=== PATIENT | female | born 2000 | race Caucasian/White ===

== ENCOUNTER 2021-07-13 18:55 | Emergency (ER) | payer OTHER, MEDICAID, SELFPAY ==
--- NOTE | ~2021-07-13 | XR_ITS ---
EXAMINATION: XR FOOT, RIGHT CLINICAL INFORMATION: Malignant infection. Evaluate for stool. COMPARISON: None TECHNIQUE: AP, lateral, and oblique views of the right foot. FINDINGS: The bones and soft tissues are normal. No fracture. Alignment is anatomic. Joint spaces are maintained. XR/XR foot RT 2V IMPRESSION: No soft tissue or bony abnormality seen especially along the lateral fifth digit. No suspicion for osteomyelitis.
[2021-07-13 19:16] VITALS: BP 115/69; PULSE 85; RESP 16; TEMP 36.6; O2SAT 98; BMI 35.2
--- NOTE | 2021-07-13 20:13 | ED_ITS ---
HPI - Extremity Injury (Lower) General Chief Complaint: Extremity Injury, Lower Stated Complaint: foot swelling Time Seen by Provider: 07/13/21 19:59 Source: patient Mode of arrival: ambulatory Limitations: no limitations History of Present Illness HPI Narrative: 21-year-old female previously healthy here with complaints of right foot swelling and pain. The patient tells me that she noticed a wound in between her 4th and 5th toe several weeks ago. Yesterday when she woke up she noticed the foot was swollen and painful and red. She denies any fevers or chills. No history of diabetes. No injury or trauma. Related Data Previous Rx's Medication Instructions Recorded clotrimazole 1 % topical cream 1 appl TOPICAL BID 28 Days #45 g 07/13/21 doxycycline monohydrate 100 mg 100 mg PO BID #20 tab 07/13/21 tablet ibuprofen 800 mg tablet 800 mg PO Q8H PRN #20 tab 07/13/21 Allergies Allergy/AdvReac Type Severity Reaction Status Date / Time No Known Allergies Allergy Verified 07/13/21 19:19 Review of Systems Review of Systems: Yes all other systems are reviewed and are negative Constitutional: Constitutional: Reports no additional constitutional complaints, Denies body ache(s), Denies chills, Denies fever(s), Denies headache(s) and Denies weakness Eyes: Eyes: Reports no additional eye complaints and Denies change in vision ENT: Reports system reviewed and no additional complaints, except as documented, Denies dizziness, Denies headache(s), Denies nasal congestion, Denies nasal discharge and Denies neck pain Cardiovascular: Cardiovascular: Reports no additional cardiovascular complaints, Denies chest pain, Denies leg edema and Denies dyspnea Respiratory: Respiratory: Reports no additional respiratory complaints, Denies cough and Denies dyspnea Gastrointestinal: Gastrointestinal: Reports no additional gastrointestinal complaints, Denies abdominal pain, Denies diarrhea, Denies nausea and Denies vomiting Genitourinary: Genitourinary: Reports no additional female genitourinary complaints and Denies urinary incontinence Musculoskeletal: Musculoskeletal: Reports no additional musculoskeletal complaints, Denies back pain, Denies arthralgias, Denies joint swelling, Denies neck pain, Denies numbness and Denies tingling Integumentary/Breasts: Skin/Breast: Reports system reviewed and no additional complaints, except as docu, Reports swelling, Reports erythema and Denies rash Neurologic: Reports system reviewed and no additional complaints, except as documented, Denies Abnormal speech present, Denies dizziness, Denies headache(s), Denies numbness, Denies tingling and Denies weakness PMFSH Past Medical History Attestation statement: The following information was validated with the patient. Source: old records reviewed and nursing notes reviewed Social History Social History Advance Directives: No Advance Directives Information Provided: No Physical Exam Vital Signs: Vital Signs: Last Vital Signs Temp 98 F 07/13/21 19:16 Pulse 85 07/13/21 19:16 Resp 16 07/13/21 19:16 BP 115/69 07/13/21 19:16 Pulse Ox 98 07/13/21 19:16 Body Mass Index 35.2 Const: General: cooperative, healthy appearing, comfortable and no acute d istress Orientation/consciousness: patient oriented x3 Limitations: no limitations HENMT: Head: Yes normal to inspection Ears: hearing grossly normal bilaterally General nose exam: Normal external nose present Face and sinu s: Yes normal facial exam Mouth: Normal oral and palatal mucosa present Throat: Yes posterior oropharynx normal Eyes: General: appearance normal, both eyes and all related structures Pupils: Equal, round and reactive pupils present Neck: Neck: Yes normal visual inspection Chest: Chest palpation & inspection: normal inspection of the chest Resp: Effort & Inspection: normal respiratory effort Auscultation: clear to auscultation bilaterally Cardio: Rate: regular rate Rhythm: regular rhythm Peripheral pulses: Peripheral pulses 2+ throughout GI: Inspection: Yes normal to inspection Palpation (GI): Soft to palpation and nontender Auscultation: normal bowel sounds Back/Spine/Pelvis: Thoracic/Lumbar Spine: thoracic and lumbar spine normal to inspection Skin: General skin exam: no rashes or lesions noted Neuro: General: patient oriented x3, no focal motor deficits and normal sensation to monofilament Cranial nerves: Yes Equal, round and reactive pupils present Cognition (Neuro): normal cognition Speech: No Abnormal speech present Gait exam (Neuro): Normal gait present Motor exam (neuro): 5/5 motor strength present throughout Extrem: Other: In between the 3rd and 4th and in between the 4th and 5th digits there is some fissuring and excoriation of the skin consistent with tin ea. There is redness and swelling extending over the dorsal aspect of the right foot. Palpable pulses. The swelling and redness is not circumferential. Sensation is intact General: Yes normal to inspection Course Course Course Narrative: Exam is consistent with tinea pedis with a superimposed cellulitis. X-ray show no evidence of osteomyelitis. No systemic signs or symptoms of infection. The area was marked with a skin marker. Will send patient home with course of antibiotics as well as a topical antifungal medication. Postop shoe and crutches for ambulation due to pain with walking. Reviewed worrisome signs and symptoms of when to return to the emergency d epartment. Comfortable discharge home. MDM - Extremity Injury (Lower) Medical Records Attestation: I reviewed the patient's medical records. Lab Data Attestation: I reviewed the patient's lab results. Imaging Data foot xray: Attestation: I personally reviewed and interpreted this imaging study as follows: Radiologist's impression: EXAMINATION: XR FOOT, RIGHT CLINICAL INFORMATION: Malignant infection. Evaluate for stool.? COMPARISON: None? TECHNIQUE: AP, lateral, and oblique views of the right foot. FINDINGS: The bones and soft tissues are normal. No fracture. Alignment is anatomic. Joint spaces are maintained.? XR/XR foot RT 2V IMPRESSION: No soft tissue or bony abnormality seen especially along the lateral fifth digit. No suspicion for osteomyelitis. Procedures Procedure Narrative Procedure Narrative: Postoperative shoe and crutches Discharge Plan Discharge Clinical Impression: Cellulitis, Tinea pedis Patient Disposition: Home, Self-Care Instructions: Athlete's Foot (ED), Cellulitis (ED) Additional Instructions: The area was marked with a skin marker. Return for redness and swelling around the entire foot (360), fever greater than 100.4, sensation alteration. The shoe and crutches are to assist with ambulation Rest and elevate the foot, ice as needed Prescriptions: New doxycycline monohydrate 100 mg tablet 100 mg PO BID Qty: 20 RF: 0 ibuprofen 800 mg tablet 800 mg PO Q8H PRN (Reason: pain) Qty: 20 RF: 0 clotrimazole 1 % cream 1 appl topical BID 28 Days Qty: 45 RF: 0 Referrals: Randa Garcia MD [Primary Care Provider] - 2 days Stand Alone Forms: Work/School Release
== END 2021-07-13 21:29 | disposition home or self-care (01) ==
PROVIDERS: Emergency Provider Internal Medicine; PCP Pediatrics
DX: L03.115 Cellulitis of right lower limb (principal); B35.3 Tinea pedis; Z79.899 Other long term (current) drug therapy
CPT/HCPCS: 73620; 99283

== ENCOUNTER 2022-03-07 15:25 | Emergency (ER) | payer OTHER, MEDICAID, SELFPAY ==
--- NOTE | ~2022-03-07 | CT_ITS ---
EXAMINATION: CT ABDOMEN AND PELVIS WITHOUT CONTRAST CLINICAL INFORMATION: Right lower quadrant pain. Anorexia. Nausea, vomiting, diarrhea. Question appendicitis. COMPARISON: None TECHNIQUE: Multidetector volumetric imaging was performed from the superior aspect of the liver through the pubic symphysis. Sagittal and coronal reformatted images were obtained on the technologist's workstation. This CT examination was performed using dose optimization techniques as appropriate, variously including the following: *Automated exposure control *Adjustment of mA and/or kV according to patient size (this includes techniques or standardized protocols for targeted exams where dose is matched to indication/reason for exam; i.e. extremities or head) *Use of iterative reconstruction technique DLP: 722 mGy-cm FINDINGS: LUNG BASES: The visualized lung bases are unremarkable. LIVER, GALLBLADDER, AND BILIARY TREE: The liver is normal in size, shape, and attenuation. No focal hepatic lesion or biliary ductal dilatation is present. The gallbladder is unremarkable with no evidence of radiopaque gallstones, gallbladder wall thickening, or obvious pericholecystic inflammatory changes. PANCREAS: Unremarkable. SPLEEN: Unremarkable. ADRENAL GLANDS: Unremarkable. KIDNEYS AND URETERS: The kidneys are normal in size, shape, and attenuation. No hydronephrosis, hydroureter, or calculi seen. No perinephric stranding. BLADDER: Unremarkable. GASTROINTESTINAL TRACT: The stomach is unremarkable. Normal caliber small bowel. No obstruction. Normal appendix. No colonic wall thickening or inflammatory change. No free air or free fluid. ABDOMINAL WALL: No significant hernia is appreciated. LYMPH NODES: Normal. VASCULAR: Unremarkable. PELVIC VISCERA: The uterus and adnexa are unremarkable. OSSEOUS STRUCTURES: Unremarkable. CT/CT abdomen pelvis wo con IMPRESSION: No acute finding of the abdomen or pelvis. No inflammatory changes. Normal appendix. Fleischner guidelines were followed.
--- NOTE | ~2022-03-07 | US_ITS ---
EXAMINATION: US PELVIS CLINICAL INFORMATION: Right lower quadrant pain. Nausea and vomiting. COMPARISON: CT 03/07/2022 TECHNIQUE: Ultrasound of the pelvis is performed using both transabdominal and transvaginal transducers along with Doppler. Transvaginal imaging is performed due to inadequate visualization transabdominally. FINDINGS: Uterus: The uterus is anteverted and measures 7.2 x 3.3 x 4.9 cm. Retroverted uterus. The double wall endometrial thickness is 0.6 mm. The uterus is smooth in contour and has normal myometrial echogenicity. No visible fibroid. Adnexa: Both ovaries are visualized. There is normal color flow to the adnexa. There is no ovarian torsion. Trace pelvic free fluid. Complex left ovarian cyst measures 2.6 x 1.9 x 2 cm . Internal echoes present. Right ovary measures 2.8 x 1.6 x 1.9 cm. 4.5 Left ovary measures 4.5 x 2.6 x 3.2 cm. 19.6 US/US pelvic and transvaginal IMPRESSION: No evidence of active ovarian torsion at this time. Complex left ovarian cyst, possibly hemorrhagic cyst.
--- NOTE | ~2022-03-07 | US_ITS ---
EXAMINATION: US PELVIS CLINICAL INFORMATION: Right lower quadrant pain. Nausea and vomiting. COMPARISON: CT 03/07/2022 TECHNIQUE: Ultrasound of the pelvis is performed using both transabdominal and transvaginal transducers along with Doppler. Transvaginal imaging is performed due to inadequate visualization transabdominally. FINDINGS: Uterus: The uterus is anteverted and measures 7.2 x 3.3 x 4.9 cm. Retroverted uterus. The double wall endometrial thickness is 0.6 mm. The uterus is smooth in contour and has normal myometrial echogenicity. No visible fibroid. Adnexa: Both ovaries are visualized. There is normal color flow to the adnexa. There is no ovarian torsion. Trace pelvic free fluid. Complex left ovarian cyst measures 2.6 x 1.9 x 2 cm . Internal echoes present. Right ovary measures 2.8 x 1.6 x 1.9 cm. 4.5 Left ovary measures 4.5 x 2.6 x 3.2 cm. 19.6 US/US pelvic ovarian doppler IMPRESSION: No evidence of active ovarian torsion at this time. Complex left ovarian cyst, possibly hemorrhagic cyst.
[2022-03-07 15:44] VITALS: BP 115/59; PULSE 65; RESP 19; TEMP 36.8; O2SAT 98
[2022-03-07 16:54] LABS: Basophils Percent Auto 0.3 % (0-2); Eosinophils Percent Auto 0.3 % (0-4); Hematocrit 42.1 % (37.0-47.0); Imm Gran Abs Auto 0.04 X10*3/uL (0.00-0.03); Imm Gran Pct Auto 0.3 % (0.0-0.4); Lymphocytes Absolute Auto 2.1 X10*3/uL (1.2-4.9); Lymphocytes Percent Auto 17.8 % (20-40); MANUAL DIFF FLAG NO; Mean Corpuscular HGB Conc 33.3 g/dl (31.0-35.0); Mean Corpuscular Hemoglobin 28.8 pg (27.0-33.0); Mean Corpuscular Volume 86.6 fL (80.0-98.0); Monocytes Absolute Auto 0.4 X10*3/uL (0.1-1.2); Monocytes Percent Auto 3.6 % (2-11); Neutrophils Absolute Auto 8.9 x10*3/uL (2.0-8.3); Neutrophils Percent Auto 77.7 % (45-73); Platelet Count 339 X10*3/uL (160-400); Red Blood Count 4.86 X10*6/uL (4.20-5.50); Red Cell Distribution Width 12.1 % (11.0-16.0); White Blood Count 11.5 X10*3/uL (4.8-10.8)
[2022-03-07 17:00] LABS: Appearance Urine CLEAR; Color Urine YELLOW; Glucose Urine UA NEG (NEG); Leukocyte Esterase Urine NEG (NEG); Nitrite Urine NEG (NEG); Specific Gravity - Urine 1.025 (1.005-1.025); Urine Blood NEG (NEG); Urine Ketones 40 MG/DL (NEG); Urine Protein NEG (NEG-TRACE)
[2022-03-07 17:02] LABS: UPreg QC Valid YES; Urine Pregnancy NEGATIVE (NEGATIVE)
[2022-03-07 17:18] LABS: Alanine Aminotransferase 18 U/L (0-31); Albumin Level 4.1 g/dL (3.5-5.0); Alkaline Phosphatase 100 U/L (39-117); Anion Gap 10 (12-20); Aspartate Amino Transferase 16 U/L (5-31); Bilirubin Total 0.4 mg/dL (0.0-1.0); Blood Urea Nitrogen 10 mg/dL (9-16); Calcium 9.9 mg/dL (8.4-10.2); Carbon Dioxide 27 mmol/L (22-29); Chloride 105 mmol/L (96-108); Creatinine Clr Calc Pharmacy 151.8; Estimated Glomerular Filt Rate > 60; Glucose Random 79 mg/dL (60-115); Lipase 21 U/L (8-78); Potassium 4.4 mmol/L (3.3-5.1); Sodium 138 mmol/L (135-145); Total Protein 7.9 g/dL (6.5-8.0)
--- NOTE | 2022-03-07 21:55 | ED.ABDPAIN ---
HPI - Abdominal Pain General Chief Complaint: Abdominal Pain Stated Complaint: lower rt abd pain Time Seen by Provider: 03/07/22 15:47 Source: patient Mode of arrival: ambulatory History of Present Illness HPI narrative: 21-year-old female without significant past medical history who presents with onset of worsening right lower quadrant pain that started last night, constant in nature, sharp and associated with nausea, vomiting, decreased appetite but she denies any diarrhea and states she has had chills but is unsure of any fevers. Otherwise, she denies any urinary pain/burning/frequency but does endorse that she had a brief episode at the end of January that self resolved. She does report a history of constipation. Related Data Previous Rx's Medication Instructions Recorded clotrimazole 1 % topical cream 1 appl TOPICAL BID 28 Days #45 g 07/13/21 doxycycline monohydrate 100 mg 100 mg PO BID #20 tab 07/13/21 tablet ibuprofen 800 mg tablet 800 mg PO Q8H PRN #20 tab 07/13/21 Allergies Allergy/AdvReac Type Severity Reaction Status Date / Time No Known Allergies Allergy Verified 03/07/22 15:47 Review of Systems Review of Systems Pertinent positives and negatives as stated in HPI 10 point review of systems is otherwise negative. PMFSH Past Medical History Source: nursing notes reviewed Social History Social History Advance Directives: No Advance Directives Information Provided: No Physical Exam ED Vital Signs: Vital Signs - 24 hr 03/07/22 15:44 03/07/22 23:22 03/08/22 00:29 Temperature 98.3 F 98.6 F 98.3 F Pulse Rate 65 62 54 Respiratory Rate 19 18 12 Blood Pressure 115/59 L 99/57 L 97/50 L Pulse Oximetry 98 100 94 BMI result Body Mass Index 30.0 VITAL SIGNS: Reviewed. GENERAL: Elevated BMI, Well developed, well nourished, in no acute distress. HEAD: Normocephalic/atraumatic EYES: PERRLA, EOMI EARS: Ext canals without abnormality OROPHARYNX: no oral lesions noted, posterior pharynx clear LUNGS: Normal breath sounds. No adventitious sounds or accessory muscle use. SpO2<98> CARDIOVASCULAR: Regular rate and rhythm without noted murmurs ABDOMEN: Soft, tenderness maximal at right lower quadrant, McBurney's positive, non-distended with bowel sounds. MUSCULOSKELETAL: No tenderness, deformities, or effusions noted on gross inspection. EXTREMITIES: No cyanosis, clubbing or edema. SKIN: Inspection of the skin reveals no rashes NEUROLOGIC: Alert and oriented x 4. Strength and sensation to light touch were grossly intact x 4. Course Course Course Narrative: 21-year-old female with history and clinical presentation after review of all investigations most suspicious for acute appendicitis and lower clinical suspicion for ovarian torsion and doubt UTI. Urinary is negative and clinical exam inconsistent with cholecystitis. Review of all investigations otherwise negative for acute findings. All results discussed with patient at bedside and she was discharged home in stable condition and able to tolerate oral intake. MDM - Abdominal Pain Lab Data Result diagrams: 03/07/22 16:46 03/07/22 16:46 Labs: Lab Results 03/07/22 03/07/22 03/07/22 Range/Units 15:53 15:53 16:46 WBC 11.5 H (4.8-10.8) X10*3/uL RBC 4.86 (4.20-5.50) X10*6/uL Hgb 14.0 (12.0-16.0) g/dl Hct 42.1 (37.0-47.0) % MCV 86.6 (80.0-98.0) fL MCH 28.8 (27.0-33.0) pg MCHC 33.3 (31.0-35.0) g/dl RDW 12.1 (11.0-16.0) % Plt Count 339 (160-400) X10*3/uL MPV 10.0 (9.4-12.3) fL Immature Gran % (Auto) 0.3 (0.0-0.4) % Neut % (Auto) 77.7 H (45-73) % Lymph % (Auto) 17.8 L (20-40) % [place] % (Auto) 3.6 (2-11) % Eos % (Auto) 0.3 (0-4) % Baso % (Auto) 0.3 (0-2) % Lymph # (Auto) 2.1 (1.2-4.9) X10*3/uL [place] # (Auto) 0.4 (0.1-1.2) X10*3/uL Eos # (Auto) 0.0 (0.0-0.4) X10*3/uL Baso # (Auto) 0.0 (0.0-0.2) X10*3/uL Abs Immat Gran (auto) 0.04 H (0.00-0.03) X10*3/uL Absolute Neuts (auto) 8.9 H (2.0-8.3) x10*3/uL Absolute Nucleated RBC 0.000 (0.0-0.012) X10*3/uL Nucleated RBC % (auto) 0.0 (0.0-0.2) /100WBC Sodium (135-145) mmol/L Potassium (3.3-5.1) mmol/L Chloride (96-108) mmol/L Carbon Dioxide (22-29) mmol/L Anion Gap (12-20) BUN (9-16) mg/dL Creatinine (0.5-1.4) mg/dL Estim Creat Clear Calc Estimated GFR Random Glucose (60-115) mg/dL Calcium (8.4-10.2) mg/dL Total Bilirubin (0.0-1.0) mg/dL AST (5-31) U/L ALT (0-31) U/L Alkaline Phosphatase (39-117) U/L Total Protein (6.5-8.0) g/dL Albumin (3.5-5.0) g/dL Lipase (8-78) U/L Urine Color YELLOW Urine Appearance CLEAR Urine pH 6.0 (5.0-8.0) Ur Specific [place] 1.025 (1.005-1.025) Urine Protein NEG (NEG-TRACE) MG/DL Urine Glucose (UA) NEG (NEG) MG/DL Urine Ketones 40 (NEG) MG/DL Urine Blood NEG (NEG) Urine Nitrite NEG (NEG) Ur Leukocyte Esterase NEG (NEG) Urine Test NEGATIVE (NEGATIVE) COVID-19 ([facility]) (Negative) COVID-19 Clin Com 03/07/22 03/07/22 Range/Units 16:46 22:02 WBC (4.8-10.8) X10*3/uL RBC (4.20-5.50) X10*6/uL Hgb (12.0-16.0) g/dl Hct (37.0-47.0) % MCV (80.0-98.0) fL MCH (27.0-33.0) pg MCHC (31.0-35.0) g/dl RDW (11.0-16.0) % Plt Count (160-400) X10*3/uL MPV (9.4-12.3) fL Immature Gran % (Auto) (0.0-0.4) % Neut % (Auto) (45-73) % Lymph % (Auto) (20-40) % [place] % (Auto) (2-11) % Eos % (Auto) (0-4) % Baso % (Auto) (0-2) % Lymph # (Auto) (1.2-4.9) X10*3/uL [place] # (Auto) (0.1-1.2) X10*3/uL Eos # (Auto) (0.0-0.4) X10*3/uL Baso # (Auto) (0.0-0.2) X10*3/uL Abs Immat Gran (auto) (0.00-0.03) X10*3/uL Absolute Neuts (auto) (2.0-8.3) x10*3/uL Absolute Nucleated RBC (0.0-0.012) X10*3/uL Nucleated RBC % (auto) (0.0-0.2) /100WBC Sodium 138 (135-145) mmol/L Potassium 4.4 (3.3-5.1) mmol/L Chloride 105 (96-108) mmol/L Carbon Dioxide 27 (22-29) mmol/L Anion Gap 10 L (12-20) BUN 10 (9-16) mg/dL Creatinine 0.67 (0.5-1.4) mg/dL Estim Creat Clear Calc 151.8 Estimated GFR > 60 Random Glucose 79 (60-115) mg/dL Calcium 9.9 (8.4-10.2) mg/dL Total Bilirubin 0.4 (0.0-1.0) mg/dL AST 16 (5-31) U/L ALT 18 (0-31) U/L Alkaline Phosphatase 100 (39-117) U/L Total Protein 7.9 (6.5-8.0) g/dL Albumin 4.1 (3.5-5.0) g/dL Lipase 21 (8-78) U/L Urine Color Urine Appearance Urine pH (5.0-8.0) Ur Specific [place] (1.005-1.025) Urine Protein (NEG-TRACE) MG/DL Urine Glucose (UA) (NEG) MG/DL Urine Ketones (NEG) MG/DL Urine Blood (NEG) Urine Nitrite (NEG) Ur Leukocyte Esterase (NEG) Urine Test (NEGATIVE) COVID-19 ([facility]) Negative (Negative) COVID-19 Clin Com See Note Discharge Plan Discharge Clinical Impression: Abdominal pain, Ovarian cyst Patient Disposition: Home, Self-Care Instructions: Abdominal Pain (ED), Ovarian Cyst (ED) Additional Instructions: 1. A reason for your abdominal pain was not identified at this time. 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 2. A left ovarian cyst was identified and can be followed up, as well as discussed with your special forces weapons sergeant/primary care provider. Return to the ER for worsening symptoms. Prescriptions: No Action doxycycline monohydrate 100 mg tablet 100 mg PO BID Qty: 20 0RF ibuprofen 800 mg tablet 800 mg PO Q8H PRN (Reason: pain) Qty: 20 0RF clotrimazole 1 % cream 1 appl topical BID 28 Days Qty: 45 0RF Referrals: Randa Garcia MD [Primary Care Provider] -
[2022-03-07] MEDS: ondansetron HCL 4 MG/2 ML VIAL IVPUSH (22:11)
[2022-03-07] MEDS: Ketorolac Tromethamine 30 MG/ML VIAL 15 MG IVPUSH (22:12)
[2022-03-07] MEDS: 0.9 % Sodium Chloride 1,000 ML 999 ML IV (22:13)
[2022-03-07 22:40] LABS: COVID-19 Test Negative (Negative)
[2022-03-07 23:22] VITALS: BP 99/57; PULSE 62; RESP 18; TEMP 37; O2SAT 100
[2022-03-08 00:29] VITALS: BP 97/50; PULSE 54; RESP 12; TEMP 36.8; O2SAT 94
== END 2022-03-08 01:10 | disposition home or self-care (01) ==
PROVIDERS: Emergency Medicine; Emergency Provider Student in an Organized Health Care Education/Training Program; PCP Pediatrics
DX: R10.31 Right lower quadrant pain (principal); N83.292 Other ovarian cyst, left side; Z20.822 Contact with and (suspected) exposure to COVID-19
CPT/HCPCS: 36415; 74176; 76830; 76856; 80053; 81003; 81025; 83690; 85025; 87635; 93975; 96361; 96374; 96375; 99284; J1885; J2405

== ENCOUNTER 2025-07-30 10:58 | Outpatient (AMB) | payer OTHER, MEDICAID, SELFPAY ==
--- NOTE | 2025-07-30 11:00 | A.OFFPC_ITS ---
Vital Signs 07/30/25 11:05 Height 5 ft Weight 227 lb BMI 44.3 BP 102/68 Blood Pressure Location Lt brachial Position Sitting Respiration 12 Pulse 69 Pulse Source Pulse Oximeter Temp 97.1 F Temp Source Oral Pulse Oximetry (%) 97 Oxygen Delivery Method Room Air Intake Visit Reasons: Requesting CPE, resched Intake Note: New patient to establish care and cpe. Stores Assistant Required: No Allergies No Known Allergies Allergy (Verified 07/30/25 11:01) Medication List - Last Reviewed 07/30/25 by Wallace Hanks MA clotrimazole 1% 1 appl topical BID 4 weeks ibuprofen 800 mg PO Q8H PRN Tobacco use date assessed: 07/30/25 Dental Screening Dental Screen Date: 07/30/25 Did you have a dental visit in the last 12 months?: No Did you have a dental problem in the last 6 months where you did not have access to dental care?: No Was dental information given to patient?: Patient has dentist HPI HPI Comments History of Present Illness Details 25 y/o F with Vit d def, MDD, fhx Bipola r, obesity Social: [facility], [facility] with goal of transfer to [place]; [facility]; raised by Maternal grandparents (Mom Mali Chavez - patient here) delivery helper, 2 children. Surgery: R thigh skin surgery unsure of details Fhx: Dad unknown; Paternal siblings unknown history. Health Maintenance: Tdap 2022 Flu declined 2024 Pap has never had one; referred today Specialists: counselor Optho glasses APARTMENT LEASING SPECIALIST History of Present Illness The patient is a 25-year-old female presenting to [facility] care and for a CPE Previous PCP: [facility], records rec'd and reviewed Obesity: - BMI 44. - Weight gain of 20-30 pounds in the t year. - Attributes weight gain to stress; repo rts poor diet. Anxiety and Depression: - History of auditory and visual halluci nations. - Trials of sertraline and escitalopram were ineffective. MDD was on escitalopram but this caused hallucinations; started on sertraline Knee Pain Bilat - life long. - Occurs often, exacerbated by weather c hanges. - Uses heating pad and warm baths for re lief. Chronic bilat knee pain heating pad, warm bath helps. Vitamin D Deficiency: - Previous diagnosis noted. Past Surgical History - Surgery on right thigh as a child for extra skin removal; no further details available. Family History - Mother with similar knee pain. - Family history of bipolar disorder. 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 - Poor appetite and irregular eating mp edule. - Increased weight gain despite high act ivity levels. - Sleep schedule described as not optima l. Health Maintenance - Discussed setting up an appointment wi th a Women's Health provider for Pap smear and women's wellness. Review of Systems - Musculoskeletal: Reports knee pain. - Psychiatric: Reports anxiety and depre ssion. - General: Reports weight gain. Denies p oor appetite. - No other systems reviewed or discussed . Physical Exam General: Well developed, well nourished, in no acute distress. Appears stated age. Head: Normocephalic, atraumatic. Eyes: Pupils are equal, round and reactive to light and accommodation. Conjunctivae are clear. Scleras nonicteric bilat. Vision grossly normal. Ears: TMs clear AU, EACS WNL Nose: Patent, without discharge. Neck: No carotid bruit bilat. Supple, no adenopathy or thyromegaly. Breast: Edu on SBE Lungs: Clear to auscultation bilaterally. No rales, rhonchi or wheeze noted. Good air flow in all hadley. Heart: Regular rate and rhythm. No murmurs, click, rubs or gallops are noted. Abdomen: Bowel sounds present in all quadrants. The abdomen is soft, nontender, with no masses or organomegaly noted. No hernias are noted. : Deferred. Reviewed recommendations for routine APARTMENT LEASING SPECIALIST Pulses: Peripheral pulses are equal and palpable bilaterally. Extremities: No clubbing, cyanosis. Edema noted in both ankles. Neurologic: Gait and station normal. Cranial Nerves 2-12 intact. Motor strength grossly symmetrical and intact. No sensory loss. Balance normal. Skin: No rashes, ulcers, or lesions noted. Turgor is good. Skin color is good. Hair and nails are without abnormalities. Psych: Normal eye contact, affect and mood appropriate, and normal interactions. Patient is alert and appropriate to context. Results Pending Discussion Notes During our visit, we discussed the patient's knee pain, weight gain, and mental health concerns. I recommended referral to an credit operations specialist to further evaluate knee pain. We also discussed setting up psychiatric evaluation due to the past history of ineffective antidepressant trials and family history of bipolar disorder. The patient is considering a referral for consultation to manage weight gain. Health maintenance was addressed, including setting up a Pap smear. I discussed ordering labs to assess thyroid function and vitamin D levels. The importance of maintaining updated contact information for follow-ups and referrals was emphasized. Patient was given time to ask questions. All questions were answered to their satisfaction. Assessment and Plan 1. Obesity - Referral to [facility] wt mgmt - Emphasis on exercise continuation. 2. Anxiety and Depression - Arrange psychiatric evaluation. - Need est a dx and meds 3. Knee Pain, bilat - Referral to orthopedics. - Continue conservative management. 4. Vitamin D Deficiency - Lab work for vitamin D and thyroid. - Adjust treatment based on results. 5. [facility]; rosa torres screening labs ordered Patient Instructions - Follow up with referrals for orthopedi cs, psychiatry, and dietetics. - Schedule an appointment for a Pap smea r and women's wellness. - Maintain physical activity and monitor nutritional intake. - Update contact information to receive referral calls. - RTO 1 year CPE Sooner as needed. Consent. Patient was informed and verbally consented to the use of an ambient scribe for clinic note documentation during this visit. An additional 30 minutes was spent addressing the problem(s) noted at todays visit. This includes time spent before the visit reviewing the chart, time spent during the visit, and time spent after the visit on documentation reviewing laboratory results, diagnostic imaging, medications, performing a medically necessary evaluation, counseling on diagnoses, care coordination, ordering appropriate tests, ordering appropriate medications, review of tests performed by other providers, reporting test results with the patient, communication with other healthcare providers. [facility] Medical History (Updated 07/30/25 @ 11:39 by Rosalie Handy, [facility]) Growing pain PTSD (post-traumatic stress disorder) Surgical History (Updated 07/30/25 @ 11:10 by Wallace Hanks MA) No pertinent past surgical history Family History (Updated 07/30/25 @ 11:10 by Wallace Hanks MA) Maternal Grandmother Substance abuse Social History (Updated 07/30/25 @ 11:08 by Wallace Hanks MA) Household Members: Spouse and Other Household Members Other:: foster kids Both parents involved: No Caregiver staying overnight: No Housing: Apartment Are you a primary caretaker resort to a significant other at home: Yes Do you presently have visiting nurse or other home services: No 75 years or older and lives alone: No Alcohol intake: never Patient Tobacco Use Status: Never used Tobacco e-Cigarette/Vaping Use: Never Used Second Hand Smoke Exposure: No service: No Current occupational status: unemployed and student Current occupational exposures/hazards: No Cognitive needs: No Hearing needs: No Vision needs: Yes (wear glasses) Questionnaire PHQ-9 Over the last 2 weeks, how often have you been bothered by any of the following problems? 1. Little interest or pleasure in doing things: more than half the days 2. Feeling down, depressed, or hopeless: several days 3. Trouble falling or staying asleep, or sleeping too much: several days 4. Feeling tired or having little energy: several days 5. Poor appetite or overeating: several days 6. Feeling bad about yourself - or that you are a failure or have let yourself or your family down: several days 7. Trouble concentrating on things, such as reading the newspaper or watching television: several days 8. Moving or speaking so slowly that other people could have noticed. Or the opposite - being so fidgety or restless that you have been moving around a lot more than usual: several days 9. Thoughts that you would be better off or of hurting yourself in some way: not at all Total score: 9 Depression Screening Interpretation: Positive Depression Screening Follow-up: Existing condition and In treatment Depression Screening Done: Yes 61844 - PHQ-9 Billing: Yes Source: Developed by Drs. Alessandro Brandon, Keerthi Hankins, Torres Ge and colleagues, with an educational anna from [employer]. Thrive Questionnaire Date Thrive assessed: 07/30/25 I am a: Parent/Caregiver What is your living situation today?: I have a steady place to live Within the past 12 months, did the food you bought not last and you didn't have the money to get more?: Never true Within the past 12 months, did you worry whether your food would run out before you got money to buy more?: Never true Do you have trouble paying for medicines?: No Do you have trouble getting transportation to medical appointments?: No Do you have trouble paying your heating and electricity bill?: No Do you have trouble taking care of your child, family member or friend?: No Do you have trouble with day-to-day activities such as bathing, preparing meals, shopping, managing finances, etc.?: No Are you currently unemployed and looking for a job?: No Are you interested in more education?: Yes Please select the resources that you would like help with: None Currently or been in a relationship where the following occur: No concerns reported THRIVE Score: 0 AUDIT C Alcohol Use Questionnaire (AUDIT-C) 1. How often do you have a drink containing alcohol?: Never 3. How often do you have six or more drinks on one occasion?: Never Total Score: 0 Score Reviewed/Action Taken: Yes TOM-7 AMB Questionnaire TOM-7 Date TOM - 7 assessed: 07/30/25 Feeling nervous, anxious, or on edge: 2 = More than half the days Not being able to stop or control worryin = More than half the days Worrying too much about different things: 2 = More than half the days Trouble relaxin = More than half the days Being so restless that it is hard to sit still: 1 = Several days Becoming easily annoyed or irritable: 0 = Not at all Feeling afraid as if something awful might happen: 2 = More than half the days Total TOM-7 score (0-4 normal; 5-9 mild; 10-14 moderate; 15-21 severe): 11 Source: Developed by Drs. Alessandro Brandon, Keerthi Hankins, Torres Ge and colleagues, with an educational anna from [employer]. TOM-7 Assessment Billing TOM-7 Assessment Tool: TOM-7 Assessment 43028 Physical exam (Primary Care) Vital Signs: Last Vital Signs Temp 97.1 F 07/30/25 11:05 Pulse 69 07/30/25 11:05 Resp 12 07/30/25 11:05 BP 102/68 07/30/25 11:05 Pulse Ox 97 07/30/25 11:05 Oxygen Delivery Method Room Air 07/30/25 11:05 BMI result Body Mass Index 44.3 BMI Assessment/Plan discussion: High BMI High, discussed plan: lifestyle Tobacco/Smoking Status: Tobacco use Status Tobacco use date assessed 07/30/25 07/30/25 11:07 Patient Tobacco Use Status Never used Tobacco 07/30/25 11:08 e-Cigarette/Vaping Use Never Used 07/30/25 11:08 PHQ-9: PHQ-9 Score PHQ-9: Total score 9 07/30/25 11:07 Depression Screening Interpretation: Positive Depression Screening Follow-up: Existing condition and In treatment Thrive Assessment: Date of Thrive Assessment Date Thrive assessed 07/30/25 07/30/25 11:07 Currently or been in a relationship where the following occur: No concerns reported Coding Level of Care Code New Pt Level 3 (47338) New Pt Prev Care 18-39yr(17644 Diagnoses Encounter to establish care with new provider Z76.89 Obesity, morbid, BMI 40.0-49.9 E66.01 Family history of bipolar disorder Z81.8 Mild episode of recurrent major depressive disorder F33.0 Major depression episode severity: mild TOM (generalized anxiety disorder) F41.1 Vitamin D deficiency E55.9 Chronic pain of both knees M25.561; M25.562; G89.29 Chronicity: chronic Laboratory exam ordered as part of routine general medical examination Z00.00 Encounter for general adult medical examination without abnormal findings Z00.00 Additional Codes TOM-7 Assessment Billing - TOM-7 Assessment Tool: TOM-7 Assessment 28781 ([id number]) PHQ-9 - 83750 - PHQ-9 Billing: Yes ([id number]) Assessment & Plan Assessment & Plan (1) Encounter to establish care with new provider: Code(s): Z76.89 - Persons encountering health services in other specified circumstances (2) Obesity, morbid, BMI 40.0-49.9: Code(s): E66.01 - Morbid (severe) obesity due to excess calories Category: Medical (3) Family history of bipolar disorder: Code(s): Z81.8 - Family history of other mental and behavioral disorders Category: Medical (4) MDD (major depressive disorder), recurrent episode: Code(s): F33.9 - Major depressive disorder, recurrent, unspecified Category: Medical Qualifiers: Major depression episode severity: mild Qualified Code(s): F33.0 - Major depressive disorder, recurrent, mild (5) TOM (generalized anxiety disorder): Code(s): F41.1 - Generalized anxiety disorder Category: Medical (6) Vitamin D deficiency: Code(s): E55.9 - Vitamin D deficiency, unspecified Category: Medical (7) Bilateral knee pain: Code(s): M25.561 - Pain in right knee; M25.562 - Pain in left knee Category: Medical Qualifiers: Chronicity: chronic Qualified Code(s): M25.561 - Pain in right knee; M25.562 - Pain in left knee; G89.29 - Other chronic pain (8) Laboratory exam ordered as part of routine general medical examination: Code(s): Z00.00 - Encounter for general adult medical examination without abnormal findings Category: Medical (9) Encounter for general adult medical examination without abnormal findings: Onset Date: ~07/30/25 Code(s): Z00.00 - Encounter for general adult medical examination without abnormal findings Category: Medical Plan . Orders: Orders Complete Blood Count no Diff Today Z00.00 - Encounter for general adult medical examination without abnormal findings Lipid Panel Today Z00.00 - Encounter for general adult medical examination without abnormal findings Microalbumin, Random (w Creat) Today Z00.00 - Encounter for general adult medical examination without abnormal findings Vitamin B12 and Folate Today Z00.00 - Encounter for general adult medical examination without abnormal findings Comprehensive Met. Panel Today Z00.00 - Encounter for general adult medical examination without abnormal findings Hemoglobin A1c Today Z00.00 - Encounter for general adult medical examination without abnormal findings TSH reflex Free T4 Today Z00.00 - Encounter for general adult medical examination without abnormal findings Vitamin D 25-OH Total Today Z00.00 - Encounter for general adult medical examination without abnormal findings Referrals Nurse Navigator Referral F33.9 - Major depressive disorder, recurrent, unspecified, F41.1 - Generalized anxiety disorder, Z81.8 - Family history of other mental and behavioral disorders Medical Weight Management Referral E66.01 - Morbid (severe) obesity due to excess calories BOATWRIGHT Referral Z12.4 - Encounter for screening for malignant neoplasm of cervix Orthopedics Referral M25.561 - Pain in right knee, M25.562 - Pain in left knee Medications: Discontinued clotrimazole 1% Discontinued Reason: Patient Completed Course 1 appl topical BID 4 weeks 45 grams 0RF Patient Instructions: Walk-In Care (Urgent Care): We Make it Easy Walk-in for urgent medical issues such as: ? Seasonal Allergies ? Insect Bites ? Cough ? Diarrhea ? Acute Asthma Attacks ? Back, Knee or Joint Pain ? Ear Infection ? Fever without a Rash ? Headaches ? Nausea ? [place] Eye, Rash or Skin Irritation ? Sore Throat ? Sports Physicals ? Vomiting Most insurances are accepted. Patients do not need to be part of the [facility] to seek care at the walk-in clinic. Locations [address] [place] [address] Open Wednesday through Wednesday 8am-5pm *Hours may vary due to staffing availability. To confirm Walk-In Care hours please call. [facility] , [place] [address] ? [phone] [facility] Walk-In Care in [place] provides services to ages 18 and over. Open Wednesday-Wednesday: 7 a.m. to 5 p.m. and Wednesday: 9 a.m. to 3 p.m.* *Hours may vary due to staffing availability. To confirm Walk-In Care hours in [place], please call [phone]. [address] [place] [address] ? [phone] [facility] Walk-In Care in [place] provides services to ages 12 and over. Open Wednesday-Wednesday: 8 a.m. to 5 p.m. Hours may vary due to staffing availability. To confirm Walk-In Care hours in [place], please call [phone]. LABORATORY SERVICES: [facility] Lab ? Primary Location [address] [place] [address] Wednesday through Wednesday 6:00 AM ? 5:00 PM Wednesday 7:00 AM ? 11:00 AM* [phone] The [facility] Lab is centrally located near the front entrance of the [facility] for easy outpatient access. Convenient parking is provided for outpatients. *Hours may vary due to staffing availability. To confirm Laboratory hours for any location, please call [phone]. Offsite Location For your convenience, we offer offsite laboratory draw stations at the following locations: [address] [place] [address] ? [facility] [address], [address] Wednesday through Wednesday 7:30 AM ? 1:00 PM* [phone] *Hours may vary due to staffing availability. To confirm Laboratory hours for any location, please call [phone]. [place] [address] Wednesday through Wednesday 6:00 AM ? 3:30 PM* Wednesday 6:30 AM ? 3 PM* [phone] *Hours may vary due to staffing availability. To confirm Laboratory hours for any location, please call [phone]. [address] [facility] Wednesday through Wednesday 7:30 AM ? 4:00 PM* [phone] *Hours may vary due to staffing availability. To confirm Laboratory hours for any location, please call [phone] [place] [address] Wednesday through 9:00 AM ? 4:00 PM* *Hours may vary due to staffing availability. To confirm Laboratory hours for any location, please call [phone]. Appointments are not necessary. Walk-ins are welcome. Like all the departments throughout the [facility], our Lab undergoes frequent reviews to ensure the quality and accuracy of test results, and our staff takes special pride in its status as a nationally accredited facility. Patient Portal: [facility] ONE PATIENT. ONE RECORD. BETTER CARE. [facility] has a fully integrated, cutting- edge mobile electronic health information system that has revolutionized the way we care for our patients and manage our organization. This system improves communication and coordination enabling us to provide safe, higher-quality care, and an overall positive experience for staff and patients. Our first priority, as always, is to deliver the highest quality care possible. The system is running in the background supporting that priority. This portal is for all [facility] services and practices. If you are experiencing any technical difficulties with enrolling or logging into the Patient Portal please complete the [facility] Patient Portal Technical Support Form. [facility] now offers a new secure on-line interactive tool for patients to review their health information ? ?Patient Portal. This interactive web portal will enable patients and their families to take an active role in their care by providing easy, secure access to their health information via the internet. The Patient Portal provides patients with instant access to their health information, including laboratory results, medications, allergies, demographic information, visit history, and more. In addition to managing their own care, parents and health care proxies with authorized consent will appreciate the ability to access the records of those individuals for whom they provide care. Please note: if you wish to gain access (Proxy) to another patient?s portal, you will be required to come to the Medical Records Department in person at [facility]. Both the patient giving proxy access and the proxy will need to provide photo identification and complete the appropriate authorization. The Patient Portal also allows track their appointments online. The [facility] Patient Portal also saves patients time by allowing them to submit updates to their demographic and contact information prior to their visits. Portal email notifications will also alert patients to any new activity on their portal, such as test results and new appointments. In order to initially enroll in the [facility] Patient Portal, you will need to enter some required information including the following: * your [facility] Medical Record number * your personal home email address * name * date of Please note: In order to enroll in the [facility] Patient Portal, we need to have your email address on file in your electronic medical record. ?The email address needs to be specific for one person (yourself) in order for your Portal enrollment to be successful. ?You can update your email address in person with our Registration staff when you are registering for a hospital visit. ?Otherwise, you will need to come to the Health Information Management (Medical Records) Department at [facility]. ?We are open from Wednesday ? Wednesday from 7:30 a.m. ? 4:30 p.m. ?You will be required to present a photo id. Once you have successfully enrolled in the Patient Portal, you will receive a one-time user id and password for the Portal, sent to your email address. ?This will allow you to log into the Patient Portal within 99 hrs and reset your own logon id and password, and define personal security questions. ?Once your permanent login and password have been set, you can log into the [facility] Patient Portal at any time via the blue button above or from the Portal Logon button on any page of the [facility] website. [facility] encourage all of our patients to enroll in Patient Portal as it presents a valuable opportunity for patients and their families to actively participate in their care and stay healthy Welcome to [facility]. ?We look forward to working with you. Health screenings for women You should visit your health care provider from time to time, even if you are healthy. The purpose of these visits is to: Screen for medical issues Assess your risk for future medical problems Encourage a healthy lifestyle Update vaccinations and other preventive care services Help you get to know your provider in case of an illness Information Even if you feel fine, you should still see your provider for regular checkups. These visits can help you avoid problems in the future. For example, the only way to find out if you have high blood pressure is to have it checked regularly. High blood sugar and high cholesterol levels also may not have any symptoms in the early stages. A simple blood test can check for these conditions. There are specific times when you should see your provider or receive specific health screenings. The [place] Preventive Services Task Force publishes a list of recommended screenings. Below are screening guidelines for women ages 18 to 39. BLOOD PRESSURE SCREENING Your blood pressure should be checked at least once every 3 to 5 years if: Your blood pressure is in the normal range (top number less than 120 mm Hg and bottom number less than 80 mm Hg) You don't have risk factors for high blood pressure Ask your provider if you need your blood pressure checked more often if: The top number is 120 to 129 mm Hg or the bottom number is 70 to 79 mm Hg You have diabetes, heart disease, kidney problems, are overweight, or have certain other health conditions You have a first-degree relative with high blood pressure You are Black You had high blood pressure during a If the top number is 130 mm Hg or greater or the bottom number is 80 mm Hg or greater, this is considered stage 1 hypertension. Schedule an appointment with your provider to learn how you can reduce your blood pressure. Watch for blood pressure screenings in your area. Ask your provider if you can stop in to have your blood pressure checked. BREAST CANCER SCREENING Experts do not agree about the benefits of breast self-exams in finding breast cancer or saving lives. Talk to your provider about what is best for you. A screening mammogram is not recommended for most women under age 40. Your provider may discuss and recommend mammograms, MRI scans, or ultrasounds if you have an increased risk for breast cancer, such as: A mother or sister who had breast cancer at a young age (most often starting screening earlier than the age the close relative was diagnosed) You carry a high-risk genetic marker CERVICAL CANCER SCREENING Cervical cancer screening should start at age 21 years unless your provider advises otherwise. After the first test: Women ages 21 through 29 should have a Pap test every 3 years. Exoprts do not agree on whether HPV testing is recommended for this age group. Women ages 30 through 65 should be screened with either a Pap test every 3 years or the HPV test every 5 years or both tests every 5 years (called cotesting ). Women who have been treated for precancer (cervical dysplasia) should continue to have Pap tests for 20 years after treatment or until age 65, whichever is longer. If you have had your uterus and cervix removed (total hysterectomy), and you h ave not been diagnosed with cervical cancer or precancer (high grade cervical neoplasia), you do not need cervical cancer screening. CHOLESTEROL SCREENING Cholesterol screening should begin at: Age 45 for women with no known risk factors for coronary heart disease Age 20 for women with known risk factors for coronary heart disease Repeat cholesterol screening should take place: Every 5 years for women with normal cholesterol levels More often if changes occur in lifestyle (including weight gain and diet) More often if you have diabetes, heart disease, kidney problems, or certain other conditions DIABETES SCREENING You should be screened for diabetes starting at age 35 and then repeated every 3 years if you have no risk factors for diabetes. Screening may need to start earlier and be repeated more often if you have other risk factors for diabetes, such as: You have a first degree relative with diabetes. You are overweight or have obesity. You have high blood pressure, prediabetes, or a history of heart disease. Screening for diabetes should be done if you are planning to become and you are overweight and have other risk factors such as high blood pressure. DENTAL EXAM Go to the dentist once or twice every year for an exam and cleaning. Your dentist will evaluate if you need more frequent visits. EYE EXAM Have an eye exam every 5 to 10 years before age 40. If you have vision problems, have an eye exam every 2 years or more often if recommended by your provider. You should have an eye exam that includes an examination of your retina (back of your eye) at least every year if you have diabetes. IMMUNIZATIONS Commonly needed vaccines include: Flu shot: get one every year. COVID-19 vaccine: ask your provider what is best for you. Tetanus-diphtheria and acellular pertussis (Tdap) vaccine: have one at or after age 19 as one of your tetanus-diphtheria vaccines if you did not receive it as an adolescent. Tetanus-diphtheria: have a booster (or Tdap) every 10 years. Varicella vaccine: receive 2 doses if you never had chickenpox or the varicella vaccine. Hepatitis B vaccine: receive 2, 3, or 4 doses, depending on your exact circumstances. Measles, mumps, and rubella (MMR) vaccine: receive 1 to 2 doses if you are not already immune to MMR. Your provider can tell you if you are immune. Ask your provider about the human papillomavirus (HPV) vaccine if: You have not received the HPV vaccine in the past You have not completed the full vaccine series (you should catch up on this shot) Ask your provider if you should receive other immunizations if you have certain health problems that increase your risk for some diseases such as pneumonia. INFECTIOUS DISEASE SCREENING Women who are sexually active should be screened for chlamydia and gonorrhea up until age 25. Women 25 years and older should be screened for chlamydia and gonorrhea if at high risk. Screening for hepatitis C: All adults ages 18 to 79 should get a one-time test for hepatitis C. people should be screened at every . Screening for human immunodeficiency virus (HIV): All people ages 15 to 65 should get a one-time test for HIV. Depending on your lifestyle and medical history, you may also need to be screened for infections such as syphilis and HIV, as well as other infections. PHYSICAL EXAM All adults should visit their provider from time to time, even if they are healthy. The purpose of these visits is to: Screen for disease Assess your risk of future medical problems Encourage a healthy lifestyle Update your vaccinations and other preventive care services Maintain a relationship with a provider in case of an illness Your height, weight, and BMI should be checked at every exam. During your exam, your provider may ask you about: Depression and anxiety Diet and exercise Alcohol and tobacco use Safety issues, such as using seat belts, smoke detectors, and intimate partner violence Your medicines and risk for interactions SKIN SELF-EXAM Your provider may check your skin for signs of skin cancer, especially if you're at high risk, such as if you: Have had skin cancer before Have close relatives with skin cancer Have a weakened immune system OTHER SCREENING Talk with your provider about colon cancer screening if you have a strong family history of colon cancer or polyps, or if you have had inflammatory bowel disease or polyps yourself. Routine bone density screening of women under 40 is not recommended.
[2025-07-30 11:05] VITALS: BP 102/68; PULSE 69; RESP 12; TEMP 36.2; O2SAT 97; BMI 44.3
== END 2025-07-30 11:33 | disposition home or self-care (01) ==
LOC: HO.HMCFM 10:59
PROVIDERS: PCP Nurse Practitioner Family; Visit Provider Nurse Practitioner Family
DX: Z00.00 Encounter for general adult medical examination without abnormal findings (principal); M25.561 Pain in right knee; M25.562 Pain in left knee; E66.01 Morbid (severe) obesity due to excess calories; Z68.41 Body mass index [BMI] 40.0-44.9, adult; Z76.89 Persons encountering health services in other specified circumstances; Z81.8 Family history of other mental and behavioral disorders; F33.0 Major depressive disorder, recurrent, mild; F41.1 Generalized anxiety disorder; E55.9 Vitamin D deficiency, unspecified; G89.29 Other chronic pain

== ENCOUNTER 2025-07-30 10:58 | Outpatient (REF) | payer OTHER, SELFPAY ==
[2025-07-30 14:51] LABS: Hematocrit 41.7 % (37.0-47.0); Hemoglobin 13.7 g/dl (12.0-16.0); Mean Corpuscular HGB Conc 32.9 g/dl (31.0-35.0); Mean Corpuscular Hemoglobin 28.8 pg (27.0-33.0); Mean Corpuscular Volume 87.8 fL (80.0-98.0); NRBC Abs Auto 0.000 X10*3/uL (0.0-0.012); NRBC Pct Auto 0.0 /100WBC (0.0-0.2); Platelet Count 351 X10*3/uL (160-400); Red Blood Count 4.75 X10*6/uL (4.20-5.50); White Blood Count 8.0 X10*3/uL (4.8-10.8)
[2025-07-30 15:17] LABS: Alanine Aminotransferase 18 U/L (0-31); Albumin Level 4.3 g/dL (3.5-5.0); Alkaline Phosphatase 92 U/L (39-117); Anion Gap 9 (12-20); Aspartate Amino Transferase 25 U/L (5-31); Blood Urea Nitrogen 10 mg/dL (9-16); Calcium 9.4 mg/dL (8.4-10.2); Carbon Dioxide 26 mmol/L (22-29); Chloride 106 mmol/L (96-108); Cholesterol 190 mg/dL (<200); Estimated Glomerular Filt Rate > 60; HDL Cholesterol 44 mg/dL (>40); Potassium 4.2 mmol/L (3.3-5.1); Sodium 137 mmol/L (135-145); Total Protein 7.7 g/dL (6.5-8.0); Triglycerides 57 mg/dL (<150)
[2025-07-30 15:26] LABS: Microalbum/Creatinine Ratio Ur 6.4 ug/mg cr (<30)
[2025-07-30 15:35] LABS: Folate 12.6 ng/mL (> or = 4.0); Vitamin B12 420 pg/mL (200-900)
== END 2025-07-30 10:59 | disposition home or self-care (01) ==
LOC: HO.WFDLDS 10:58
PROVIDERS: PCP Nurse Practitioner Family; Visit Provider Nurse Practitioner Family
DX: Z00.00 Encounter for general adult medical examination without abnormal findings (principal); Z76.89 Persons encountering health services in other specified circumstances; E66.01 Morbid (severe) obesity due to excess calories; F33.0 Major depressive disorder, recurrent, mild; F41.1 Generalized anxiety disorder; E55.9 Vitamin D deficiency, unspecified; M25.561 Pain in right knee; M25.562 Pain in left knee; G89.29 Other chronic pain; Z81.8 Family history of other mental and behavioral disorders; Z68.41 Body mass index [BMI] 40.0-44.9, adult
CPT/HCPCS: 36415; 80053; 80061; 82043; 82306; 82570; 82607; 82746; 83036; 84443; 85027; 96127

== ENCOUNTER 2025-08-29 15:25 | Outpatient (AMB) | payer OTHER, SELFPAY ==
--- NOTE | 2025-08-29 15:26 | A.OFFPC_ITS ---
Vital Signs 08/29/25 15:32 Temp 99.2 F Temp Source Oral Intake Visit Reasons: call Intake Note: Telehealth Patient c/o diarrhea for more than 24 hrs and not holding anything in and also a fever it started yesterday. Javascript Software Engineer Required: No Allergies No Known Allergies Allergy (Verified 08/29/25 15:27) Medication List - Last Reconciled 08/29/25 by FREDERIC Singletary- ibuprofen 800 mg PO Q8H PRN loperamide (Imodium A-D) 2 mg PO Q4H PRN 5 days multivitamin 1 tab PO DAILY ondansetron HCl 4 mg PO Q8H PRN 3 days Tobacco use date assessed: 07/30/25 Dental Screening Dental Screen Date: 07/30/25 HPI HPI Comments History of Present Illness Details 25 y/o F with Vit d def, MDD, fhx Bipola r, obesity History of Present Illness The patient is a 25-year-old female presenting with symptoms of gastroenteritis. Acute viral gastroenteritis: - The patient reports onset of symptoms yesterday around 2 a.m., with a potential exposure from her goddaughter who had a similar illness. - Symptoms included a fever of 101.2?F y esterday and vomiting, though the vomiting has since resolved. - She continues to experience persistent nausea and constant, non-bloody diarrhea. - She describes periumbilical abdominal soreness, which does not worsen with ambulation. - The patient has been attempting to hyd rate with water and has tried Pedialyte, but the latter exacerbates her nausea. - She last took Tylenol approximately th ree hours ago. Review of Systems - Constitutional: Reports fever, with a temperature of 99.2?F currently and a high of 101.2?F yesterday. - Gastrointestinal: Reports persistent n ausea, constant diarrhea, and periumbilical soreness. Denies current vomiting and blood in stool. - Genitourinary: Reports she is urinatin g. - Eyes: Denies any yellowing of the eyes . Physical Exam - Vitals: Temperature 99.2?F. - General Appearance: Eyes appear anicte steph during telehealth assessment. Face is flushed, MM are mildly dry Speaking in full sentences, walking about house w/o sob. No cough. Able to press on abd and not have increased pain. Assessment and Plan 1. Acute Viral Gastroenteritis - The patient's presentation is consiste nt with a viral stomach bug, with symptoms expected to resolve within 72 hours. - Plan: - A prescription for Zofran will be sent to [facility] to manage nausea and support oral hydration. - Advised to prioritize fluid intake, in cluding ice, popsicles, and jello, as fluids are more critical than solid food at this time. - Recommended debq-[id number] loperamid e for diarrhea, with a prescription sent in case of insurance coverage, and advised caution to avoid constipation. - Recommended using Tylenol or ibuprofen to manage fever. - Instructed to seek further evaluation if symptoms worsen, particularly if the abdominal pain intensifies. - A work excuse note will be provided vi a the patient portal, covering absence through with an anticipated return on Wednesday. Patient was given time to ask questions. All questions were answered to their satisfaction. Telehealth Attestation This visit was conducted via a real-time, two-way audio interaction with the patient. The patient has been explained that this is an interactive (audio/video) telehealth encounter and what that consists of. The patient understands and wishes to proceed. [employer] platform was used. Total time spent caring for the patient today was 15 minutes. This includes time spent before the visit reviewing the chart, time spent during the visit, and time spent after the visit on documentation, reviewing laboratory results, diagnostic imaging, medications, performing a medically necessary evaluation, counseling on diagnoses, care coordination, ordering appropriate tests, ordering appropriate medications, review of tests performed by other providers, reporting test results with the patient, communication with other healthcare providers. [facility] Medical History (Updated 07/30/25 @ 16:15 by Rosalie Handy, [facility]) Growing pain PTSD (post-traumatic stress disorder) Surgical History (Updated 07/30/25 @ 11:10 by Wallace Hanks MA) No pertinent past surgical history Family History (Updated 07/30/25 @ 11:10 by Wallace Hanks MA) Maternal Grandmother Substance abuse Social History (Updated 07/30/25 @ 11:08 by Wallace Hanks MA) Household Members: Spouse and Other Household Members Other:: foster kids Both parents involved: No Caregiver staying overnight: No Housing: Apartment Are you a primary career services officer to a significant other at home: Yes Do you presently have visiting nurse or other home services: No 75 years or older and lives alone: No Alcohol intake: never Patient Tobacco Use Status: Never used Tobacco e-Cigarette/Vaping Use: Never Used Second Hand Smoke Exposure: No service: No Current occupational status: unemployed and student Current occupational exposures/hazards: No Cognitive needs: No Hearing needs: No Vision needs: Yes (wear glasses) Questionnaire Thrive Questionnaire Date Thrive assessed: 07/30/25 TOM-7 AMB Questionnaire TOM-7 Date TOM - 7 assessed: 07/30/25 Source: Developed by Drs. Alessandro Brandon, Keerthi Hankins, Torres Ge and colleagues, with an educational anna from [employer]. Physical exam (Primary Care) Tobacco/Smoking Status: Tobacco use Status Tobacco use date assessed 07/30/25 08/29/25 15:27 Patient Tobacco Use Status Never used Tobacco 08/29/25 15:27 e-Cigarette/Vaping Use Never Used 08/29/25 15:27 Thrive Assessment: Date of Thrive Assessment Date Thrive assessed 07/30/25 08/29/25 15:27 Telehealth Telehealth Telehealth Platform: [employer] Location of provider rendering services: practice address Location of patient: address on file Patient Identification confirmed using: Name, : Yes Telehealth method: video Patient verbally consented to treatment: Yes Patient verbally consented to billing insurance company: Yes Patient informed of any privacy concerns related to visit: Yes Minutes spent on Phone/Video with Pt.: 7 Coding Level of Care Code Tele Est Pt Level 2 (75081) Complex EM visit Add On G2211 Diagnoses Gastroenteritis K52.9 Assessment & Plan Assessment & Plan (1) Gastroenteritis: Code(s): K52.9 - Noninfective gastroenteritis and colitis, unspecified Plan . Medications: New ondansetron HCl 4 mg PO Q8H PRN 15 tabs 0RF nausea and vomiting 3 days loperamide (Imodium A-D) 2 tabs after first loose stool, then 1 additional tab after each loose stool until symptoms controlled; do not exceed 8 mg per 24 hrs 2 mg PO Q4H PRN 20 tabs 0RF loose stool 5 days
[2025-08-29 15:32] VITALS: TEMP 37.3
== END 2025-08-29 15:39 | disposition home or self-care (01) ==
LOC: HO.HMCFM 15:25
PROVIDERS: PCP Nurse Practitioner Family; Visit Provider Nurse Practitioner Family
DX: K52.9 Noninfective gastroenteritis and colitis, unspecified (principal)